=== PATIENT | female | born 1930 | race Hispanic/Latino ===

== ENCOUNTER 2016-06-07 06:29 | Emergency (ER) | payer MEDICARE, OTHER ==
[2016-06-07 07:45] LABS: Anion Gap 18 mmol/L; BUN/Creatinine Ratio 14.28; Blood Urea Nitrogen 10 mg/dL (7-17); Calcium 8.6 mg/dL (8.4-10.2); Carbon Dioxide 23 mmol/L (22-30); Chloride 97.5 mmol/L (98-107); Glucose 191 mg/dL (65-100); Potassium 4.2 mmol/L (3.6-5.0); Sodium 134 mmol/L (137-145)
[2016-06-07 08:04] LABS: Basophils % (Auto) 0.4 % (0.0-1.8); Eosinophils % (Auto) 1.3 % (0.0-4.3); Hematocrit 44.3 % (30.3-42.9); Hemoglobin 14.5 gm/dl (10.1-14.3); Mean Corpuscular HGB Conc 33 % (30-34); Mean Corpuscular Hemoglobin 30 pg (28-32); Mean Corpuscular Volume 92 fl (79-97); Platelet Count 287 K/mm3 (140-440); Red Blood Count 4.84 M/mm3 (3.65-5.03); Red Cell Distribution Width 13.7 % (13.2-15.2); White Blood Count 9.1 K/mm3 (4.5-11.0)
--- NOTE | 2016-06-07 08:13 | Emergency Department Report ---
HPI - General Chief Complaint: Weakness Time Seen by Provider: 06/07/16 07:21 - HPI HPI: Chief complaint: Shaky sensation upon walking HPI: Patient is an 86-year-old female with a history of previous stroke, diabetes, hypertension, peripheral neuropathy who was recently placed on gabapentin 100 mg at night by her primary care doctor for her neuropathy. She took her first dose last night and when she got up this morning she felt shaky and lightheaded. Patient is not having trouble walking but states that her feet feel numb which is not new. Patient denies any pain, fever, nausea, vomiting, diarrhea, cough, cold, sore throat or headache. Mode of arrival: [EMS] Source: [Patient] and patient's daughter with whom she lives. Began: This morning Duration: Only on standing Context: See above Quality: Pain-free Severity: 0 out of 10 Improved with: Laying down Worsened with: Standing Associated signs and symptoms: See above ED Past Medical Hx - Past Medical History Previous Medical History?: Yes Hx Hypertension: Yes Hx CVA: Yes Hx Diabetes: Yes Additional medical history: hyperlipidemia, neuropathy - Surgical History Past Surgical History?: Yes Additional Surgical History: colon - Social History Smoking Status: Never Smoker Substance Use Type: None - Medications Home Medications: Home Medications Medication Instructions Recorded Confirmed Last Taken Type Glimepiride [Amaryl] 2 mg PO BID 10/11/14 10/11/14 Unknown History Nortriptyline [Pamelor] 10 mg PO QHS 10/11/14 10/11/14 Unknown History Omeprazole [PriLOSEC] 20 mg PO QDAY 10/11/14 10/11/14 Unknown History Rosuvastatin (Nf) [Crestor] 5 mg PO QHS 10/11/14 10/11/14 Unknown History amLODIPine [Norvasc] 5 mg PO DAILY 10/11/14 10/11/14 Unknown History ED Review of Systems ROS: Stated complaint: HIGH BP/DIZZINESS Other details as noted in HPI ROS Constitutional: No fever ENT: No uri symptoms Cardiovascular: No chest pain Respiratory: No sob or cough GI: No nausea vomiting or diarrhea : No dysuria frequency or urgency, Skin: No rash Neuro: No focal weakness Psych: No depression Prashanth/lymph: No edema Physical Exam - Physical Exam Physical Exam: GENERAL: The patient is well-developed well-nourished . HEENT: Normocephalic. Atraumatic. Extraocular motions are intact. Patient has moist mucous membranes. NECK: Supple. No meningitic signs are noted. There is no adenopathy noted. CHEST/LUNGS: Clear to auscultation. There is no respiratory distress noted. HEART/CARDIOVASCULAR: Regular. There is no tachycardia. There is no gallop rub or murmur. ABDOMEN: Abdomen is soft, nontender. Patient has normal bowel sounds. There is no abdominal distention. SKIN: There is no rash. There is no edema. There is no diaphoresis. NEURO: The patient is awake, alert, and oriented. The patient is cooperative. The patient has no focal neurologic deficits except for decreased sensation to bilateral feet secondary to neuropathy.. The patient has normal speech. She is able to ambulate. MUSCULOSKELETAL: There is no tenderness or deformity. There is no limitation range of motion. There is no evidence of acute injury. ED Medical Decision Making - Lab Data Result diagrams: 06/07/16 07:13 06/07/16 07:13 Laboratory Tests 06/07/16 07:13 Troponin T < 0.010 - EKG Data -: EKG Interpreted by Ok EKG shows normal: sinus rhythm Rate: normal (98) - EKG Data When compared to previous EKG there are: previous EKG unavailable Interpretation: normal EKG Critical care attestation.: If time is entered above; I have spent that time in minutes in the direct care of this critically ill patient, excluding procedure time. ED Disposition Clinical Impression: Adverse drug reaction Disposition: DISCHARGED TO HOME OR SELFCARE Is pt being admited?: No Does the pt Need Aspirin: No Condition: Stable Instructions: Weakness (ED) Referrals: [Primary Care Provider] - 3-5 Days Time of Disposition: 10:25
[2016-06-07 08:58] LABS: Bilirubin,Urine NEG (Negative); Blood,Urine NEG (Negative); Ketones,Urine TR mg/dL (Negative); Leukocyte Esterase,Urine MOD (Negative); Nitrite,Urine NEG (Negative); Protein,Urine <15 mg/dL mg/dL (Negative); Urobilinogen,Urine < 2.0 mg/dL (<2.0)
[2016-06-07 11:46] VITALS: BP 124/63
== END 2016-06-07 11:00 | disposition home or self-care (01) ==
LOC: ED 06:29
DX: T42.6X5A Adverse effect of other antiepileptic and sedative-hypnotic drugs, initial encounter (principal); I10 Essential (primary) hypertension; I63.9 Cerebral infarction, unspecified; E11.9 Type 2 diabetes mellitus without complications; E78.5 Hyperlipidemia, unspecified; Y93.89 Activity, other specified; Y99.9 Unspecified external cause status; Y92.89 Other specified places as the place of occurrence of the external cause
CPT/HCPCS: 36415; 80048; 81001; 82962; 84484; 85025; 93005; 93010